=== PATIENT | male | born 1980 | race Caucasian/White ===

== ENCOUNTER 2021-04-22 07:12 | Emergency (ER) | payer BC ==
[~2021-04-22] VITALS: Ht 172.7 cm; Wt 131.5 kg
[2021-04-22] MEDS ORDERED: SODIUM CHLORIDE 0.9% 1000ML 1,000 ML IV STA (07:42)
[2021-04-22] MEDS ORDERED: CEFTRIAXONE 1 GM in SODIUM CHLORIDE 0.9% 50ML 50 ML IV ONE (07:45)
[2021-04-22] MEDS ORDERED: DEXAMETHASONE SOD PHOS 10 MG/1 ML VIAL IV ONE (07:45)
[2021-04-22 08:05] LABS: BASOPHILS # (AUTO) 0.1 (0.0-0.1); BASOPHILS % 0.4 % (0.0-1.0); EOSINOPHILS # (AUTO) 0.1 (0.0-0.4); EOSINOPHILS % 0.4 % (0.0-6.0); LYMPHOCYTES # (AUTO) 1.4 (1.0-3.2); LYMPHOCYTES % 8.5 % (18.0-39.1); MEAN CORPUSCULAR HEMOGLOBIN 31.4 pg (28-32); MEAN CORPUSCULAR HGB CONC 35.4 g/dL (31-35); MEAN CORPUSCULAR VOLUME 88.6 fL (81-99); MONOCYTES # (AUTO) 0.9 (0.2-0.8); MONOCYTES % 5.1 % (4.4-11.3); NEUTROPHILS # (AUTO) 14.3 (2.1-6.9); NEUTROPHILS % 85.2 % (38.7-80.0); PLATELET COUNT 228 x10e3/uL (140-360); RED BLOOD COUNT 5.42 x10e6/uL (4.3-5.7); RED CELL DISTRIBUTION WIDTH 12.7 % (11.7-14.4)
[2021-04-22] MEDS ORDERED: CEFTRIAXONE 1 GM VIAL ONE (08:06)
[2021-04-22] MEDS ORDERED: ACETAMINOPHEN 325 MG TAB PO STA (08:06)
[2021-04-22 08:14] LABS: CLARITY,URINE CLEAR (CLEAR); COLOR,URINE YELLOW (YELLOW)
[2021-04-22 08:15] LABS: KETONES,URINE NEGATIVE (NEGATIVE); LEUKOCYTE ESTERASE ,URINE NEGATIVE (NEGATIVE); NITRITE,URINE NEGATIVE (NEGATIVE); PROTEIN,URINE DIPSTICK NEGATIVE (NEGATIVE); URINE UROBILINOGEN 0.2 mg/dL (0.2 - 1)
[2021-04-22 08:33] LABS: ALBUMIN 4.1 g/dL (3.5-5.0); ANION GAP 14.5 mmol/L (8-16); CALCIUM 10.1 mg/dL (8.4-10.2); CREATININE, SERUM 1.21 mg/dL (0.72-1.25); POTASSIUM 4.5 mmol/L (3.5-5.1)
[2021-04-22 08:37] LABS: BACTERIA,URINE RARE /HPF; EPITHELIAL CELLS,URINE RARE /LPF; WBC,URINE (MAN) 0-5 /HPF (0-5)
[2021-04-22 08:43] LABS: CREATINE KINASE MB 1.7 ng/mL (0-5.0)
[2021-04-22] MEDS ORDERED: DIPHENHYDRAMINE HCL INJ 50 MG/ML VIAL IV ONE (09:45)
[2021-04-22] MEDS ORDERED: METOCLOPRAMIDE HCL 10 MG/2ML VIAL IV ONE (09:45)
[2021-04-22] MEDS ORDERED: KETOROLAC TROMETHAMINE 30 MG/ML VIAL IV STA (10:25)
[2021-04-22] MEDS ORDERED: VENTOLIN HFA18 GM INH (11:03)
[2021-04-22] MEDS ORDERED: BROMFED DM COU118 ML PO (11:03)
[2021-04-22] MEDS ORDERED: CEPHALEXIN500 MG PO (11:03)
== END 2021-04-22 11:23 | disposition home or self-care (01) ==
LOC: ER 07:30
DX: A41.9 Sepsis, unspecified organism (principal); R06.82 Tachypnea, not elsewhere classified; R00.0 Tachycardia, unspecified; J06.9 Acute upper respiratory infection, unspecified; D72.829 Elevated white blood cell count, unspecified; I10 Essential (primary) hypertension; F32.A Depression, unspecified; Z20.822 Contact with and (suspected) exposure to COVID-19
CPT/HCPCS: 36415; 70450; 71046; 80053; 81001; 82550; 82553; 83605; 84484; 85025; 87040; 87086; 93005; 99284; J0456; J0696; J1200; J1885; J2765; J7030; J7050; U0002